=== PATIENT | female | born 1985 | race Caucasian/White ===

== ENCOUNTER 2019-12-15 23:55 | Emergency (ER) | payer OTHER ==
[~2019-12-15] VITALS: Ht 177.8 cm; Wt 57.6 kg
--- NOTE | 2019-12-16 00:16 | NUR ---
PT AAOX4. BIB [employer] FROM [facility]IREMENT. PT C/O CP SINCE 2199 RADIATING TO NECK 11/23. PLACED ON MONITOR AND PULSE OX. VSS. NO ACUTE DISTRESS NOTED. AWAITING MD FOR EVAL AND ORDERS.
--- NOTE | 2019-12-16 00:17 | NUR ---
EMT AT BEDSIDE FOR EKG
[2019-12-16] MEDS ORDERED: IBUPROFEN 600 MG TABLET PO ONE (00:54)
[2019-12-16] MEDS: IBUPROFEN 600 MG TABLET PO ONE (00:56)
[2019-12-16 01:48] VITALS: BP 127/71
--- NOTE | 2019-12-16 01:48 | NUR ---
Patient discharged to home in stable condition. Written and verbal after care instructions given. Patient verbalizes understanding of instruction. Pt ambualted with steady gait. Denies CP. Left in custody.
== END 2019-12-16 01:53 ==
LOC: ER 23:55
DX: R07.89 Other chest pain (principal); R11.0 Nausea; R42 Dizziness and giddiness; R00.0 Tachycardia, unspecified; Z98.890 Other specified postprocedural states
CPT/HCPCS: 71045-TC